=== PATIENT | female | born 1935 | race American Indian/Alaskan Native ===

== ENCOUNTER 2018-03-29 13:34 | Emergency (ER) | payer MEDICAID ==
[~2018-03-29] VITALS: Ht 152.4 cm; Wt 63.5 kg
[2018-03-29] MEDS ORDERED: IBUPROFEN600 MG PO (14:04)
[2018-03-29] MEDS ORDERED: TENORMIN25 MG PO (14:04)
[2018-03-29] MEDS ORDERED: GLUCOPHAGE500 MG PO (14:04)
[2018-03-29] MEDS ORDERED: HYDROCHLOROTH12.5 MG PO (14:04)
== END 2018-03-29 15:30 | disposition home or self-care (01) ==
LOC: ED 13:34
DX: S42.212A Unspecified displaced fracture of surgical neck of left humerus, initial encounter for closed fracture (principal); E11.9 Type 2 diabetes mellitus without complications; I10 Essential (primary) hypertension; Z79.84 Long term (current) use of oral hypoglycemic drugs; Z79.899 Other long term (current) drug therapy; W19.XXXA Unspecified fall, initial encounter; Y93.01 Activity, walking, marching and hiking
CPT/HCPCS: 73060; 99283